=== PATIENT | male | born 1995 | race Caucasian/White ===

== ENCOUNTER → 2024-05-01 | Outpatient (CLI) | payer OTHER | LOC: M PLARAD 09:17 → EDUNIT# 09:45 | PROVIDERS: ATTEND Orthopaedic Surgery | DX: M25.562 Pain in left knee (principal); M25.062 Hemarthrosis, left knee; I82.402 Acute embolism and thrombosis of unspecified deep veins of left lower extremity ==

== ENCOUNTER → 2024-05-05 | Outpatient (REF) | payer OTHER ==
[2024-05-05 14:08] LABS: SEMEN APPEARANCE OPAQUE (OPAQUE); SEMEN VISCOSITY LIQUID (LIQUID); SEMEN VOLUME 4.9 ml (2.0-5.0); SEMEN pH 8.5 (7.0-8.0)
[2024-05-05 14:09] LABS: SPERM CONCENTRATION 11.2 M/ml (>=15.0); WBC CONCENTRATION <=1 M/ml (<=1 M/ml)
== END ==
LOC: M LAB REF 14:00
PROVIDERS: ATTEND Obstetrics & Gynecology
DX: N46.8 Other male infertility (principal)

== ENCOUNTER → 2024-07-07 | Outpatient (CLI) | payer OTHER | LOC: M PLAIMG 15:06 | PROVIDERS: ATTEND Physician Assistant | DX: G56.21 Lesion of ulnar nerve, right upper limb (principal) ==